=== PATIENT | female | born 1990 | race Caucasian/White ===

== ENCOUNTER 2019-05-16 13:25 | Inpatient (IN) | payer MEDICAID ==
[~2019-05-16] VITALS: Ht 160 cm; Wt 61.7 kg
[~2019-05-16 13:25] MED LIST: ALPR0.25 PO; METH10TA2 PO; OXYC20TA2 PO; PNV1TABL4
[2019-05-16] MEDS ORDERED: SODIUM CHLORIDE 0.9% 1,000ML IVBOLUS ONE (14:00)
[2019-05-16] MEDS ORDERED: ZIPRASIDONE 20 MG INJ IM ONE ×3 (14:00→23:00)
[2019-05-16] MEDS ORDERED: SODIUM CHLORIDE FLUSH 10ML SYR IVF ONE (14:00)
[2019-05-16] MEDS ORDERED: LORazepam 2 MG/ML, 1ML IVPush ONE (14:00)
[2019-05-16] MEDS ORDERED: LORazepam 2 MG/ML, 1ML ONE (14:29)
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
--- NOTE | 2019-05-16 14:33 | NUR ---
TASK RN: EDRN and senior qc technician assisted pt with removing personal clothing and necklace. Personal belongigns placed in one bag labled in ED locker for safekeeping. PIV obtained. Labs obtained. Pt hesitant to cooperate with PIV and labs initially, senior qc technician built rapport with pt, pt allowed EDTECH to placed PIV and EDRN to obtain labs. Pt transfered on gurney from room 16 to ED room 03 with SI/HI precautions in place. Pt in room 03 at this time with sitter outside doorway in direct line of sight for observation.
--- NOTE | 2019-05-16 14:36 | NUR ---
REPORT FROM [facility]. IV NS BOLUS INFUSING, ATIVAN GIVEN PER ERP ORDER. Addendum: 05/16/19 at 1452 by ANÍBAL SITTER AT DOORWAY FOR CLOSE OBS.
[2019-05-16 15:05] LABS: BASOPHILS # (AUTO) 0.05 x10^3/uL (0-0.1); BASOPHILS % (AUTO) 0 % (0-1); EOSINOPHILS # (AUTO) 0.02 x10^3/uL (0-0.4); EOSINOPHILS % (AUTO) 0 % (1-7); LYMPHOCYTES # (AUTO) 1.64 x10^3/uL (1-3.4); LYMPHOCYTES % (AUTO) 13 % (22-44); MD NO; MEAN CORPUSCULAR HEMOGLOBIN 25.6 pg (27.0-34.8); MEAN CORPUSCULAR HGB CONC 32.5 g/dL (32.4-35.8); MEAN CORPUSCULAR VOLUME 78.7 fL (80-100); MEAN PLATELET VOLUME 7.9 fL (7.4-10.4); MONOCYTES # (AUTO) 0.97 x10^3/uL (0.2-0.8); MONOCYTES % (AUTO) 8 % (2-9); NEUTROPHILS # (AUTO) 9.64 x10^3/uL (1.8-6.8); NEUTROPHILS % (AUTO) 78 % (42-75); PLATELET COUNT 355 x10^3/uL (130-400); RED BLOOD COUNT 4.57 x10^6/uL (3.82-5.3); RED CELL DISTRIBUTION WIDTH 16.6 % (9.6-15.2)
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
[2019-05-16 15:18] LABS: ALBUMIN 3.7 g/dL (3.4-5.0); ANION GAP 7 mmol/L (5-15); CHLORIDE 109 mmol/L (98-107)
[2019-05-16 15:25] LABS: ALANINE AMINOTRANSFERASE 21 U/L (12-78); ALKALINE PHOSPHATASE 76 U/L (45-117); BILIRUBIN,TOTAL 0.6 mg/dL (0.2-1.0); CREATININE 0.53 mg/dL (0.55-1.02); TOTAL PROTEIN 8.6 g/dL (6.4-8.2)
[2019-05-16 15:29] LABS: SALICYLATE LEVEL < 1.7 mg/dL (2.8-20.0)
--- NOTE | 2019-05-16 16:01 | NUR ---
PT AMBULATED TO BR WITH STEADY GAIT. PT INSTRUCTED ON HOW TO GET CLEAN CATCH. PT URINATED IN TOILET, NOT CUP. PT BACK TO BED, SITTER AT DOORWAY.
--- NOTE | 2019-05-16 16:45 | NUR ---
PT STILL NONVERBAL BUT WILL NOD OR SHAKE HEAD TO QUESTIONS. PT ASKED IF FEELING BETTER, SHAKES HEAD NO. PT OFFERED FOOD BUT SHAKES HEAD (NO) AND NODS HEAD (YES) WHEN ASKED IF SHE UNDERSTANDS. UNABLE TO OBTAIN MEDICATIONS. SITTER AT DOORWAY, AWAITING ADMIT BED.
--- NOTE | 2019-05-16 17:08 | NUR ---
PT PROVIDED NUMBER FOR MOM TO SITTER AND ASKED TO SPEAK WITH HER. MOM'S (EUGENIA) NUMBER: [phone]
[2019-05-16] MEDS ORDERED: ACETAMINOPHEN 325 MG TABLET PO PRN (17:30)
[2019-05-16] MEDS ORDERED: LORazepam 1MG TABLET PO PRN (17:30)
[2019-05-16] MEDS ORDERED: ONDANSETRON ODT 4 MG PO PRN (17:30)
[2019-05-16] MEDS ORDERED: ENOXAPARIN 40 MG/0.4 ML SQ SCH (17:30)
[2019-05-16 18:36] VITALS: BP 105/63
[2019-05-16] MEDS: SODIUM CHLORIDE 0.9% 1,000 ML IV SCH (19:16)
[2019-05-16] MEDS: THIAMINE 100 MG in SODIUM CHLORIDE 0.9% 50 ML IV SCH (20:04)
[2019-05-16] MEDS: LORazepam 2 MG/ML, 1ML IVPush PRN ×3 (20:21→22:25)
[2019-05-16 20:42] VITALS: BP 100/64
[2019-05-16] MEDS ORDERED: LORazepam 2 MG/ML, 1ML IV PRN ×4 (22:30)
[2019-05-16] MEDS: LORazepam 2 MG/ML, 1ML IV PRN ×2 (22:44→22:59)
[2019-05-17 03:45] VITALS: BP 128/75
[2019-05-17 06:06] LABS: BASOPHILS # (AUTO) 0.01 x10^3/uL (0-0.1); BASOPHILS % (AUTO) 0 % (0-1); EOSINOPHILS % (AUTO) 2 % (1-7); LYMPHOCYTES # (AUTO) 1.39 x10^3/uL (1-3.4); LYMPHOCYTES % (AUTO) 12 % (22-44); MD NO; MEAN CORPUSCULAR HEMOGLOBIN 25.8 pg (27.0-34.8); MEAN CORPUSCULAR HGB CONC 32.2 g/dL (32.4-35.8); MEAN CORPUSCULAR VOLUME 80.3 fL (80-100); MEAN PLATELET VOLUME 8.1 fL (7.4-10.4); MONOCYTES # (AUTO) 1.14 x10^3/uL (0.2-0.8); MONOCYTES % (AUTO) 10 % (2-9); NEUTROPHILS # (AUTO) 9.33 x10^3/uL (1.8-6.8); NEUTROPHILS % (AUTO) 77 % (42-75); PLATELET COUNT 313 x10^3/uL (130-400); RED BLOOD COUNT 4.12 x10^6/uL (3.82-5.3)
[2019-05-17 06:14] LABS: ALANINE AMINOTRANSFERASE 19 U/L (12-78); ALBUMIN 3.3 g/dL (3.4-5.0); ANION GAP 7 mmol/L (5-15); CALCIUM 8.2 mg/dL (8.5-10.1); CHLORIDE 111 mmol/L (98-107)
[2019-05-17 06:16] LABS: ALKALINE PHOSPHATASE 75 U/L (45-117); BILIRUBIN,TOTAL 0.4 mg/dL (0.2-1.0); CREATININE 0.57 mg/dL (0.55-1.02); TOTAL PROTEIN 7.9 g/dL (6.4-8.2)
[2019-05-17 07:38] VITALS: BP 122/74
[2019-05-17] MEDS ORDERED: ACETAMINOPHEN 325 MG TABLET PO PRN (08:00)
[2019-05-17] MEDS ORDERED: ZIPRASIDONE 20 MG INJ IM ONE (08:37)
[2019-05-17 08:48] LABS: TROPONIN I < 0.015 ng/mL (0.000-0.045)
[2019-05-17 09:53] LABS: MICROSCOPIC AUTO
[2019-05-17 09:59] LABS: AMPHETAMINE SCREEN, URINE Positive (Negative); BARBITURATE SCREEN, URINE Negative (Negative); BENZODIAZEPINE SCREEN, URINE Negative (Negative); CANNABINOID SCREEN, URINE Negative (Negative); COCAINE SCREEN, URINE Negative (Negative); METHADONE SCREEN, URINE Negative (Negative); OPIATE SCREEN, URINE Positive (Negative)
[2019-05-17 10:01] LABS: CULTURE INDICATED? YES
[2019-05-17 10:10] VITALS: BP 114/72
[2019-05-17] MEDS: SODIUM CHLORIDE 0.9% 1,000 ML IV SCH ×2 (11:39→23:13)
[2019-05-17] MEDS: FERROUS SULFATE 325 MG TABLET PO SCH (11:43)
[2019-05-17 13:52] VITALS: BP 132/71
[2019-05-17] MEDS: THIAMINE 100 MG in SODIUM CHLORIDE 0.9% 50 ML IV SCH (17:48)
[2019-05-17 18:48] VITALS: BP 109/68
[2019-05-18 00:30] VITALS: BP 117/72
[2019-05-18 05:57] LABS: BASOPHILS # (AUTO) 0.04 x10^3/uL (0-0.1); BASOPHILS % (AUTO) 0 % (0-1); EOSINOPHILS # (AUTO) 0.13 x10^3/uL (0-0.4); EOSINOPHILS % (AUTO) 1 % (1-7); LYMPHOCYTES # (AUTO) 1.74 x10^3/uL (1-3.4); LYMPHOCYTES % (AUTO) 13 % (22-44); MD NO; MEAN CORPUSCULAR HEMOGLOBIN 25.8 pg (27.0-34.8); MEAN CORPUSCULAR VOLUME 80.7 fL (80-100); MEAN PLATELET VOLUME 8.1 fL (7.4-10.4); MONOCYTES # (AUTO) 1.27 x10^3/uL (0.2-0.8); MONOCYTES % (AUTO) 10 % (2-9); NEUTROPHILS # (AUTO) 10.14 x10^3/uL (1.8-6.8); NEUTROPHILS % (AUTO) 76 % (42-75); PLATELET COUNT 297 x10^3/uL (130-400); RED BLOOD COUNT 4.39 x10^6/uL (3.82-5.3); RED CELL DISTRIBUTION WIDTH 17.6 % (9.6-15.2)
[2019-05-18 06:54] VITALS: BP 130/76
[2019-05-18] MEDS: THIAMINE 100MG TABLET PO SCH (09:00)
[2019-05-18] MEDS: SODIUM CHLORIDE 0.9% 1,000 ML IV SCH ×2 (09:09→20:07)
[2019-05-18 12:53] VITALS: BP 111/69
[2019-05-18 19:07] VITALS: BP 123/79
[2019-05-19 00:25] VITALS: BP 113/75
[2019-05-19] MEDS: SODIUM CHLORIDE 0.9% 1,000 ML IV SCH ×2 (06:03→14:54)
[2019-05-19 07:09] VITALS: BP 101/65
[2019-05-19 08:31] LABS: BASOPHILS # (AUTO) 0.03 x10^3/uL (0-0.1); BASOPHILS % (AUTO) 0 % (0-1); EOSINOPHILS # (AUTO) 0.21 x10^3/uL (0-0.4); EOSINOPHILS % (AUTO) 2 % (1-7); LYMPHOCYTES # (AUTO) 1.56 x10^3/uL (1-3.4); LYMPHOCYTES % (AUTO) 17 % (22-44); MD NO; MEAN CORPUSCULAR HEMOGLOBIN 25.8 pg (27.0-34.8); MEAN CORPUSCULAR VOLUME 80.5 fL (80-100); MEAN PLATELET VOLUME 7.8 fL (7.4-10.4); MONOCYTES # (AUTO) 1.02 x10^3/uL (0.2-0.8); MONOCYTES % (AUTO) 11 % (2-9); NEUTROPHILS # (AUTO) 6.43 x10^3/uL (1.8-6.8); NEUTROPHILS % (AUTO) 69 % (42-75); PLATELET COUNT 284 x10^3/uL (130-400); RED BLOOD COUNT 4.39 x10^6/uL (3.82-5.3); RED CELL DISTRIBUTION WIDTH 17.2 % (9.6-15.2)
[2019-05-19] MEDS: FERROUS SULFATE 325 MG TABLET PO SCH (08:47)
[2019-05-19] MEDS: THIAMINE 100MG TABLET PO SCH (08:47)
[2019-05-19 12:23] VITALS: BP 103/62
[2019-05-19] MEDS: OLANZAPINE 5 MG TABLET PO SCH (14:54)
[2019-05-19 21:34] VITALS: BP 95/56
[2019-05-20] MEDS: SODIUM CHLORIDE 0.9% 1,000 ML IV SCH ×2 (01:13→16:11)
[2019-05-20 01:37] VITALS: BP 93/53
[2019-05-20 06:50] LABS: BASOPHILS # (AUTO) 0.02 x10^3/uL (0-0.1); BASOPHILS % (AUTO) 0 % (0-1); EOSINOPHILS # (AUTO) 0.28 x10^3/uL (0-0.4); EOSINOPHILS % (AUTO) 4 % (1-7); LYMPHOCYTES # (AUTO) 2.28 x10^3/uL (1-3.4); LYMPHOCYTES % (AUTO) 33 % (22-44); MD NO; MEAN CORPUSCULAR HEMOGLOBIN 25.5 pg (27.0-34.8); MEAN CORPUSCULAR HGB CONC 31.6 g/dL (32.4-35.8); MEAN CORPUSCULAR VOLUME 80.9 fL (80-100); MEAN PLATELET VOLUME 8.1 fL (7.4-10.4); MONOCYTES # (AUTO) 0.77 x10^3/uL (0.2-0.8); MONOCYTES % (AUTO) 11 % (2-9); NEUTROPHILS # (AUTO) 3.48 x10^3/uL (1.8-6.8); NEUTROPHILS % (AUTO) 51 % (42-75); PLATELET COUNT 285 x10^3/uL (130-400); RED BLOOD COUNT 4.49 x10^6/uL (3.82-5.3); RED CELL DISTRIBUTION WIDTH 17.4 % (9.6-15.2)
[2019-05-20 07:02] VITALS: BP 108/71
[2019-05-20] MEDS: OLANZAPINE 5 MG TABLET PO SCH (09:38)
[2019-05-20] MEDS: THIAMINE 100MG TABLET PO SCH (09:38)
[2019-05-20 12:20] VITALS: BP 96/59
[2019-05-20 20:02] VITALS: BP 108/71
[2019-05-21] MEDS: SODIUM CHLORIDE 0.9% 1,000 ML IV SCH ×2 (01:59→17:27)
[2019-05-21 02:15] VITALS: BP 107/67
[2019-05-21 07:03] VITALS: BP 114/71
[2019-05-21] MEDS: OLANZAPINE 5 MG TABLET PO SCH (08:35)
[2019-05-21] MEDS: THIAMINE 100MG TABLET PO SCH (08:35)
[2019-05-21] MEDS: FERROUS SULFATE 325 MG TABLET PO SCH (08:35)
[2019-05-21 09:43] LABS: BASOPHILS # (AUTO) 0.02 x10^3/uL (0-0.1); BASOPHILS % (AUTO) 0 % (0-1); EOSINOPHILS % (AUTO) 4 % (1-7); LYMPHOCYTES # (AUTO) 1.71 x10^3/uL (1-3.4); LYMPHOCYTES % (AUTO) 24 % (22-44); MD NO; MEAN CORPUSCULAR HEMOGLOBIN 25.7 pg (27.0-34.8); MEAN CORPUSCULAR HGB CONC 32.6 g/dL (32.4-35.8); MEAN CORPUSCULAR VOLUME 78.9 fL (80-100); MEAN PLATELET VOLUME 7.4 fL (7.4-10.4); MONOCYTES # (AUTO) 0.63 x10^3/uL (0.2-0.8); MONOCYTES % (AUTO) 9 % (2-9); NEUTROPHILS # (AUTO) 4.58 x10^3/uL (1.8-6.8); NEUTROPHILS % (AUTO) 63 % (42-75); PLATELET COUNT 304 x10^3/uL (130-400); RED BLOOD COUNT 4.59 x10^6/uL (3.82-5.3)
[2019-05-21] MEDS: CEFTRIAXONE PMX 1GM/50ML 50 ML IV SCH (09:50)
[2019-05-21] MEDS: ENOXAPARIN 40 MG/0.4 ML SQ SCH (09:50)
[2019-05-21 09:55] LABS: ALANINE AMINOTRANSFERASE 23 U/L (12-78); ANION GAP 7 mmol/L (5-15); CALCIUM 8.7 mg/dL (8.5-10.1); CHLORIDE 109 mmol/L (98-107); CREATININE 0.55 mg/dL (0.55-1.02)
[2019-05-21 09:58] LABS: ALKALINE PHOSPHATASE 64 U/L (45-117); BILIRUBIN,TOTAL 0.3 mg/dL (0.2-1.0); TOTAL PROTEIN 7.6 g/dL (6.4-8.2)
[2019-05-21 16:29] VITALS: BP 115/85
[2019-05-21 20:13] VITALS: BP 116/84
[2019-05-22] VITALS (7 sets, daily range): BP systolic 98–135; BP diastolic 59–76
[2019-05-22 05:38] LABS: BASOPHILS # (AUTO) 0.03 x10^3/uL (0-0.1); BASOPHILS % (AUTO) 0 % (0-1); EOSINOPHILS # (AUTO) 0.29 x10^3/uL (0-0.4); EOSINOPHILS % (AUTO) 4 % (1-7); LYMPHOCYTES # (AUTO) 2.45 x10^3/uL (1-3.4); LYMPHOCYTES % (AUTO) 33 % (22-44); MD NO; MEAN CORPUSCULAR HEMOGLOBIN 25.9 pg (27.0-34.8); MEAN CORPUSCULAR HGB CONC 32.1 g/dL (32.4-35.8); MEAN CORPUSCULAR VOLUME 80.7 fL (80-100); MEAN PLATELET VOLUME 7.9 fL (7.4-10.4); MONOCYTES # (AUTO) 0.69 x10^3/uL (0.2-0.8); MONOCYTES % (AUTO) 9 % (2-9); NEUTROPHILS # (AUTO) 4.08 x10^3/uL (1.8-6.8); NEUTROPHILS % (AUTO) 54 % (42-75); PLATELET COUNT 316 x10^3/uL (130-400); RED BLOOD COUNT 4.76 x10^6/uL (3.82-5.3); RED CELL DISTRIBUTION WIDTH 17.9 % (9.6-15.2)
[2019-05-22 05:46] LABS: CHLORIDE 109 mmol/L (98-107)
[2019-05-22 05:59] LABS: ALANINE AMINOTRANSFERASE 18 U/L (12-78); ALBUMIN 3.1 g/dL (3.4-5.0); ALKALINE PHOSPHATASE 63 U/L (45-117); ANION GAP 3 mmol/L (5-15); BILIRUBIN,TOTAL 0.4 mg/dL (0.2-1.0); CALCIUM 8.9 mg/dL (8.5-10.1); CREATININE 0.49 mg/dL (0.55-1.02); TOTAL PROTEIN 7.9 g/dL (6.4-8.2)
[2019-05-22] MEDS: THIAMINE 100MG TABLET PO SCH (08:09)
[2019-05-22] MEDS: OLANZAPINE 5 MG TABLET PO SCH (08:09)
[2019-05-22] MEDS: ENOXAPARIN 40 MG/0.4 ML SQ SCH (08:10)
[2019-05-22] MEDS: CEFTRIAXONE PMX 1GM/50ML 50 ML IV SCH (08:10)
[2019-05-22] MEDS ORDERED: DIAZEPAM 5 MG/ML, 10ML VIAL IV ONE (18:00)
[2019-05-23 01:26] VITALS: BP 111/72
[2019-05-23 06:57] VITALS: BP 111/77
[2019-05-23] MEDS: ENOXAPARIN 40 MG/0.4 ML SQ SCH (08:30)
[2019-05-23] MEDS ORDERED: SULFAMETH./TRIMETHOPRIM DS 800MG/160MG TABLET PO SCH (09:00)
[2019-05-23] MEDS ORDERED: OLAN5TAB9 PO (09:29)
[2019-05-23] MEDS ORDERED: THIA100T67 PO (09:29)
[2019-05-23] MEDS ORDERED: Sulfameth./Trimethoprim Ds PO (09:29)
[2019-05-23] MEDS: OLANZAPINE 5 MG TABLET PO SCH (10:34)
[2019-05-23] MEDS: THIAMINE 100MG TABLET PO SCH (10:34)
[2019-05-23] MEDS ORDERED: SENNA/DOCUSATE TABLET PO PRN (13:00)
[2019-05-23 13:13] VITALS: BP 110/71
== END 2019-05-23 14:52 | DRG 71 ==
LOC: ED 14:25 → EDIP 16:23 → 3N 18:00 → 4EST 05-17 09:56 → 4WST 05-18 10:36
PROVIDERS: ADMIT Family Medicine; ATTEND Internal Medicine
DX: G93.40 Encephalopathy, unspecified (principal); N39.0 Urinary tract infection, site not specified; B19.20 Unspecified viral hepatitis C without hepatic coma; B96.20 Unspecified Escherichia coli [E. coli] as the cause of diseases classified elsewhere; D50.9 Iron deficiency anemia, unspecified; E86.0 Dehydration; F12.90 Cannabis use, unspecified, uncomplicated; F29 Unspecified psychosis not due to a substance or known physiological condition; G89.29 Other chronic pain; Z90.49 Acquired absence of other specified parts of digestive tract
CPT/HCPCS: 36415; 70450; 71045; 80053; 80307; 81001; 82140; 82607; 82728; 82962; 83540; 83550; 83735; 84443; 84466; 84484; 84703; 85025; 86592; 87077; 87086; 87186; 87806; 93005; 93306; 96374; 99285; G0378; J0696; J1650; J3360; J3411; J3486; 92523-GN; G0475; J2060; J7030